=== PATIENT | female | born 1995 | race Hispanic/Latino ===

== ENCOUNTER 2019-08-06 14:27 | Inpatient (IN) | payer MEDICAID ==
[~2019-08-06] VITALS: Ht 162.6 cm; Wt 98.4 kg
[~2019-08-06 14:27] MED LIST: PREN1TAB80 PO
[2019-08-06 15:01] LABS: APPEARANCE,URINE Clear (CLEAR); BILIRUBIN,URINE Negative (NEGATIVE); COLOR,URINE Yellow (YELLOW); GLUCOSE, URINE (UA) Negative (NEGATIVE); KETONES,URINE Negative (NEGATIVE); LEUKOCYTE ESTERASE ,URINE Small (NEGATIVE); NITRATE,URINE Negative (NEGATIVE); OCCULT BLOOD,URINE Negative (NEGATIVE); PH,URINE 6.5 (5.0-8.0); PROTEIN,URINE POS 1+ mg/dL (NEGATIVE)
[2019-08-06] MEDS ORDERED: AMPICILLIN 2GM+NS 100ML 100 ML IV SCH (15:15)
[2019-08-06] MEDS ORDERED: LACTATED RINGERS 1000ML 1,000 ML IV PRN (15:15)
[2019-08-06 15:52] LABS: HEMATOCRIT 30.2 % (36-48); MEAN CORPUSCULAR HEMOGLOBIN 26.8 pg (27.0-33.0); MEAN CORPUSCULAR HGB CONC 31.5 g/dL (32.0-36.0); MEAN CORPUSCULAR VOLUME 85.1 fL (80-100); NUCLEATED RED BLOOD CELLS 0.2 % (0.0-0.19); RED BLOOD CELL COUNT(AUTO) 3.55 MIL/uL (4.00-5.50); RED CELL DISTRIBUTION WIDTH 12.8 % (11.0-15.5)
[2019-08-06 17:00] LABS: RBC,URINE 0-1 /HPF (0-1)
[2019-08-06 17:01] LABS: BACTERIA,URINE Rare /HPF (None Seen); MUCUS,URINE Rare LPF (None Seen); SQUAMOUS EPITHELIAL CELL,UR Few /HPF (0-2)
[2019-08-06 18:38] LABS: AMPHET/METH SCREEN,URINE NEGATIVE (NEGATIVE); BARBITURATE SCREEN, URINE NEGATIVE (NEGATIVE); BENZODIAZEPINES SCREEN,URINE NEGATIVE (NEGATIVE); CANNABINOID SCREEN,URINE NEGATIVE (NEGATIVE); COCAINE SCREEN,URINE NEGATIVE (NEGATIVE); OPIATE SCREEN,URINE NEGATIVE (NEGATIVE); PHENCYCLIDINE SCREEN,URINE NEGATIVE (NEGATIVE)
[2019-08-06 19:39] VITALS: BP 120/70
[2019-08-06] MEDS: AMPICILLIN 1GM+NS 50ML 50 ML IV SCH ×2 (19:49→23:49)
[2019-08-07] MEDS ORDERED: OXYTOCIN 10 USP UNITS/ML 20 UNIT in LACTATED RINGERS 1000ML 1,000 ML IV SCH (04:00)
[2019-08-07] MEDS: AMPICILLIN 1GM+NS 50ML 50 ML IV SCH (04:07)
[2019-08-07] MEDS ORDERED: LIDOCAINE HCL 1% 20 ML VIAL ONE (05:39)
[2019-08-07] MEDS ORDERED: OXYTOCIN-LR 20 UNITS/1000 ML 1,000 ML IV ONE (05:39)
[2019-08-07] MEDS ORDERED: WITCH HAZEL 1 PAD TP PRN (06:15)
[2019-08-07] MEDS ORDERED: ACETAMINOPHEN-CODEINE 300/30MG TAB PO PRN (06:15)
[2019-08-07] MEDS ORDERED: LANOLIN 30GM OINTMENT TP PRN (06:15)
[2019-08-07] MEDS ORDERED: BENZOCAINE/LANOLIN/ALOE VERA 60 ML AEROSOL TP PRN (06:15)
[2019-08-07] MEDS ORDERED: MEASLES/MUMPS/RUBELLA VACCINE, LIVE 0.5 ML/VIAL SQ PRN (06:15)
[2019-08-07] MEDS ORDERED: OXYTOCIN-LR 20 UNITS/1000 ML 1,000 ML IV SCH (07:00)
[2019-08-07] MEDS: DOCUSATE SODIUM 100 MG CAP PO SCH ×2 (07:36→22:37)
[2019-08-07] MEDS: IBUPROFEN 600 MG TABLET PO PRN ×3 (07:36→22:44)
[2019-08-07 07:45] VITALS: BP 136/80
[2019-08-07] MEDS ORDERED: PNV1TABL17 PO (08:27)
[2019-08-07] MEDS: OXYTOCIN-LR 20 UNITS/1000 ML 1,000 ML IV SCH (08:55)
[2019-08-07 11:45] VITALS: BP 116/60
--- NOTE | 2019-08-07 16:18 | NUR ---
HX with CPS, substance abuse Sw met with pt who delivered her second child, daughter Verenice Smith, has s on [address]y [address]. They live in [address] [facility] [address] with mother Rosy Walton, brothers 11,8 sisters 7 and 30. Sister's BF, and kids 8 and 1 live there as well. FOB of NB is Olamide Smith (47) and this is his 8th child. They have been together 2 years, but pt does not consider them a couple " we just are co parents". Pt has car seat and basic items for NB. Pt has not chosen resident programs assistant for NB. Pt has good family support in place. Pt has Medicaid and WIC. Mother Rosy is a provider. Pt reports she has hx with CPS for drug use (she tested positive for cocaine) pt states they removed her son at that time and she stopped everything and was cooperative with CPS. Pt does not know if case is closed now and can't remember name of casewker. Pt states she has remained clean since that time and denies any drug use during . Pt was negative at delivery. Pt states she does drink, and drank until 2 weeks before finding out she was . Pt offered substance abuse resources and she declined, stated she is fine. Pt was arrested in September for public intoxication, no charges pending. Pt denies hx of abuse mental health or domestic violence. Sw left message with several CPS workers to verify case status. Waiting on response.
[2019-08-07 16:28] VITALS: BP 113/61
[2019-08-07] MEDS ORDERED: DIPH,PERTUSS(ACELL),TET VAC/PF 0.5 ML VIAL IM ONE (17:15)
[2019-08-07 19:31] VITALS: BP 114/51
[2019-08-08 00:23] VITALS: BP 118/61
[2019-08-08] MEDS: AMPICILLIN 1GM+NS 50ML 50 ML IV SCH ×2 (03:15→07:15)
[2019-08-08 04:18] VITALS: BP 115/62
[2019-08-08] MEDS: OXYTOCIN-LR 20 UNITS/1000 ML 1,000 ML IV SCH (05:30)
[2019-08-08 06:11] LABS: HEPATITIS Bs ANTIGEN SCREEN P Negative (Negative)
[2019-08-08 07:27] VITALS: BP 113/81
--- NOTE | 2019-08-08 08:31 | NUR ---
NO OPEN CPS CASE SW spoke to Ronda Jiang [phone] at CPS. Pt has no open case, last case was about 1 year ago as pt reported. Mom was negative at delivery, no further SS issues
[2019-08-08] MEDS: DOCUSATE SODIUM 100 MG CAP PO SCH (09:20)
[2019-08-08 11:13] VITALS: BP 124/62
[2019-08-08 16:37] VITALS: BP 117/70
--- NOTE | 2019-08-08 18:00 | NUR ---
PATIENT LEFT UNIT VIA WHEELCHAIR WITH BABY IN HAND. PERSONAL VEHICLE USED FOR TRANSPORTATION. BABY SECURED IN CARSEAT
== END 2019-08-08 18:00 | disposition home or self-care (01) | DRG 560 ==
LOC: EDH 14:27 → LDH 14:42 → OBSVTOIN 14:42 → WSH 08-07 09:00
PROVIDERS: ADMIT Specialist; ATTEND Specialist
PROC: 10E0XZZ Delivery of Products of Conception, External Approach (ICD-10-PCS; principal; 2019-08-07)
PROC: 3E0234Z Introduction of Serum, Toxoid and Vaccine into Muscle, Percutaneous Approach (ICD-10-PCS; 2019-08-07)
PROC: 3E0134Z Introduction of Serum, Toxoid and Vaccine into Subcutaneous Tissue, Percutaneous Approach (ICD-10-PCS; 2019-08-07)
DX: O62.3 Precipitate labor (principal); Z37.0 Single live birth; D64.9 Anemia, unspecified; O99.02 Anemia complicating childbirth; Z3A.37 37 weeks gestation of pregnancy; Z23 Encounter for immunization
CPT/HCPCS: 36415; 80305; 81001; 85027; 86592; 86850; 86900; 86901; 87088; 87340; 90707; 90715; G0378; J0290; J2590; J7120

== ENCOUNTER 2019-12-07 06:30 | Observation (INO) | payer MEDICAID ==
[2019-11-29 13:01] LABS: BASOPHILS % (AUTO) 0.2 % (0.0-5.0); EOSINOPHILS % (AUTO) 0.9 % (0.0-8.0); HEMATOCRIT 37.6 % (36-48); LYMPHOCYTES % (AUTO) 23.2 % (21.0-51.0); MEAN CORPUSCULAR HEMOGLOBIN 23.9 pg (27.0-33.0); MEAN CORPUSCULAR HGB CONC 29.5 g/dL (32.0-36.0); MEAN CORPUSCULAR VOLUME 80.9 fL (79-99); MONOCYTES % (AUTO) 4.6 % (3.0-13.0); NEUTROPHILS % (AUTO) 70.7 % (40.0-77.0); PLATELET COUNT (AUTO) 339 K/uL (130-400); RED BLOOD CELL COUNT(AUTO) 4.65 MIL/uL (4.00-5.50); RED CELL DISTRIBUTION WIDTH 16.5 % (11.0-15.5); WHITE BLOOD COUNT (AUTO) 10.3 K/uL (4.8-10.8)
[2019-12-07] VITALS (32 sets, daily range): BP systolic 32–138; BP diastolic 49–79
[~2019-12-07] VITALS: Ht 167.6 cm; Wt 85.3 kg
[2019-12-07] MEDS ORDERED: PROPOFOL 10 MG/ML 20ML VIAL IV ONE ×2 (07:37→09:48)
[2019-12-07] MEDS ORDERED: ROCURONIUM 10MG/1ML SYR 10 MG/ML ML ONE (07:37)
[2019-12-07] MEDS ORDERED: SUCCINYLCHOLINE 200MG/10ML SYR ONE (07:37)
[2019-12-07] MEDS ORDERED: FENTANYL CITRATE PF 50 MCG/1 ML 2ML VIAL ONE (07:37)
[2019-12-07] MEDS ORDERED: LIDOCAINE PF 2% 5ML ABBOJECT ONE (07:37)
[2019-12-07] MEDS ORDERED: LACTATED RINGERS 1000ML 1,000 ML IV SCH (08:00)
[2019-12-07] MEDS ORDERED: MIDAZOLAM HCL 1 MG/ML 2ML VIAL ONE ×2 (09:00→11:13)
[2019-12-07] MEDS ORDERED: NEOSTIGMINE 5MG/5ML SYR IV ONE (09:54)
[2019-12-07] MEDS ORDERED: GLYCOPYRROLATE 1 MG/5 ML SYRINGE ONE (09:54)
[2019-12-07] MEDS ORDERED: MEPERIDINE-PF 25 MG/ML SYG ONE ×2 (10:25→10:34)
[2019-12-07] MEDS ORDERED: MIDAZOLAM HCL 1 MG/ML 2ML VIAL IVP ONE (11:10)
[2019-12-07] MEDS ORDERED: LORAZEPAM 2 MG/ML 1 ML VIAL IVP ONE (11:40)
[2019-12-07] MEDS ORDERED: LORAZEPAM 2 MG/ML 1 ML VIAL ONE (11:48)
[2019-12-07] MEDS ORDERED: LORAZEPAM 2 MG/ML 1 ML VIAL IVP PRN (11:50)
[2019-12-07] MEDS ORDERED: DiphenhydrAMINE HCL 50 MG/ML VIAL ONE (11:59)
[2019-12-07] MEDS ORDERED: DiphenhydrAMINE HCL 50 MG/ML VIAL IV SCH (12:00)
[2019-12-07 12:37] LABS: AMPHET/METH SCREEN,URINE NEGATIVE (NEGATIVE); BARBITURATE SCREEN, URINE NEGATIVE (NEGATIVE); BENZODIAZEPINES SCREEN,URINE POSITIVE (NEGATIVE); CANNABINOID SCREEN,URINE POSITIVE (NEGATIVE); COCAINE SCREEN,URINE NEGATIVE (NEGATIVE); OPIATE SCREEN,URINE NEGATIVE (NEGATIVE); PHENCYCLIDINE SCREEN,URINE NEGATIVE (NEGATIVE)
[2019-12-07] MEDS: KETOROLAC TROMETHAMINE 15MG/ML IV PRN (17:16)
--- NOTE | 2019-12-07 20:00 | NUR ---
ASSESS SHIFT ASSESSMENT DONE, PLEASE REFER TO CHART. DUE MEDS ADMINISTERED, TOLERATED WELL. CALL LIGHT WITHIN REACH. WILL MONITOR PT. Addendum: 12/08/19 at 0217 by PARMINDER LYNN RN RN Amended: Links added.
--- NOTE | 2019-12-08 02:00 | NUR ---
ROUNDS PT RESTING WELL, FAIRLY ASLEEP. NO DISTRESS NOTED. KEPT COMFORTABLE IN BED. CALL LIGHT WITHIN REACH. WILL MONITOR PT.
[2019-12-08 04:00] VITALS: BP 116/62
--- NOTE | 2019-12-08 05:05 | NUR ---
ROUNDS PT SLEPT AT LONG INTERVALS DURING THE SHIFT. NO DISTRESS NOTED. KEPT RESTED AND COMFORTABLE. CALL LIGHT WITHIN REACH. FOR MORE CARE.
[2019-12-08] MEDS: KETOROLAC TROMETHAMINE 15MG/ML IV PRN (07:51)
[2019-12-08 08:00] VITALS: BP 103/40
[2019-12-08] MEDS ORDERED: ONDANSETRON HCL 4 MG/2 ML VIAL IVP PRN (08:30)
[2019-12-08 12:00] VITALS: BP 103/54
--- NOTE | 2019-12-08 14:22 | NUR ---
DCP CM met with pt discussed dc plans. Pt is independent prior to admission, lives at home with mother and 2 minors children a 4months and 4 y/o. Denies any equipments/services. Feels safe to go back home, mother able to assist with transportation and needs as necessary. Uses [employer] [facility] [address] for [employer]. DC plan to home once stable. CM to continue to follow up. Addendum: 12/08/19 at 1424 by USAMA JARA LVN CM Amended: Links added.
[2019-12-08 16:00] VITALS: BP 118/75
--- NOTE | 2019-12-08 17:08 | NUR ---
DISCHARGE DISCHARGE INSTRUCTIONS GIVEN TO PATIENT, VERBALIZED UNDERSTANDING. IV DISCONTINUED, TELEPAK REMOVED.
== END 2019-12-08 17:45 | disposition home or self-care (01) ==
LOC: DAH 06:30 → 3BH 06:31 → DAH 06:31
PROVIDERS: ADMIT Internal Medicine; ATTEND Internal Medicine
DX: Z30.2 Encounter for sterilization (principal); Z20.828 Contact with and (suspected) exposure to other viral communicable diseases; G25.71 Drug induced akathisia
CPT/HCPCS: 36415 ×2; 58671; 80305; 84703; 85025; 86850 ×2; 86900 ×2; 86901 ×2; 96374; 96376; A4215 ×3; A4221; A4222; A4223; A4264; A4351; A4663; A6260; C1769 ×2; C9803; G0378 ×19; J0330; J1200; J1885 ×2; J2001; J2060; J2175 ×2; J2250 ×2; J2704 ×2; J2710; J3010; J3490; J7030; J7120 ×2; U0003

== ENCOUNTER 2024-10-14 19:13 | Emergency (ER) | payer BC, MEDICAID ==
[~2024-10-14] VITALS: Ht 160 cm; Wt 99.3 kg
--- NOTE | 2024-10-14 19:16 | NUR ---
UA CUP PROVIDED
[2024-10-14 19:23] VITALS: BP 109/66; PULSE 77; RESP 18; TEMP 97.7; O2SAT 98
--- NOTE | 2024-10-14 19:26 | ERN ---
ED Note History of Present Illness Stated Complaint: RT BRUISED ARM Chief Complaint: Arm Swelling/Redness Time Seen by MD: 19:20 Time Seen by Midlevel: 19:21 Dictation: 29-year-old female presents to the emergency department due to reported having a bruising to the right antecubital area. Patient states that she donated blood couple days ago and then afterwards she noticed the bruising. Currently, she denies having any fever or chills. The patient denies having any pain to the exercise. She states that she was just concerned due to never seen bruising like this. Patient denies having any coagulation problems. She denies having any hemoptysis, hematuria, hematemesis, rectal bleeding, hemarthrosis or petechial rash. Upon initial evaluation, the patient presents in no acute distress. 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: None Home Meds No Active Prescriptions or Reported Meds Past Medical History Past Medical History: No Pertinent History Surgical History: None History: Not Applicable LMP: Sep 27, 2024 Review of System Dictation Skin: Bruising of right arm Initial Vital Sign VS Vital Signs Date Time Temp Pulse Resp B/P (MAP) Pulse Ox O2 Delivery O2 Flow Rate FiO2 10/14/24 19:15 97.7 77 18 109/66 98 Room Air Physical Exam Dictation General: awake, alert, NAD Head/Face: Normocephalic, atraumatic Eyes: PERRL, EOMI ENT: Oral mucosa moist Neck: Trachea midline, supple Cardiovascular: RRR, no edema Respiratory: Symmetrical, non-labored Abdomen: Soft, non-tender, non-distended, no guarding. Skin: Warm, dry, good turgor, bruising noted to the right antecubital area. MS/Extremity: Pulses equal, no cyanosis, neurovascular intact, FROM Neuro: COAx4, GCS 15, steady gait, ED Course ED Course Vital Signs Date Time Temp Pulse Resp B/P (MAP) Pulse Ox O2 Delivery O2 Flow Rate FiO2 10/14/24 19:15 97.7 77 18 109/66 98 Room Air Medical Decision Making MDM MDM: Differential diagnosis: Bruising, rash, contusion. Rationale: Tests considered and ordered secondary to shared decision making include: Previous outside records reviewed: Old ER visits. Risk of complication and/or morbidity or mortality of patient management: None Medications-Per medication reconciliation Need for hospitalization: Patient does not meet criteria for hospitalization. Need for emergency major/minor surgery: No There are no social concerns with this patient. Prescription drug management Prescriptions will include symptomatic care Patient's prior external medical records from other ER visits were reviewed by me as indicated. Prior testing and results from previous visits were reviewed. Prior tests were taken into account with medical decision making and resource utilization, independent historian/historians were used to obtain complete med ical history. I independently interpreted the test that were performed, results were reviewed by me and considered findings on radiology if ordered. Medical management and examination interpretation discussions were had by me with other qualified healthcare professionals as indicated for the patient's care. DX & DISP Disposition: Discharge Departure Impression: Primary Impression: Superficial bruising of arm Condition: Stable Scripts No Active Prescriptions or Reported Meds Referrals: DYLAN CUEVAS MD (PCP) Time of Disposition: 19:25 RYAN HANNON Oct 14, 2024 19:26
== END 2024-10-14 19:32 | disposition home or self-care (01) ==
LOC: EDH 19:13
DX: S40.021A Contusion of right upper arm, initial encounter (principal); X58.XXXA Exposure to other specified factors, initial encounter; Y93.89 Activity, other specified; Y92.89 Other specified places as the place of occurrence of the external cause; Y99.8 Other external cause status
CPT/HCPCS: 99281; 99282